=== PATIENT | female | born 1955 | race Caucasian/White ===

== ENCOUNTER 2023-07-12 22:12 | Inpatient (IN) | payer MEDICARE ==
[~2023-07-12] VITALS: Ht 177.8 cm; Wt 165.1 kg
[2023-07-12] MEDS ORDERED: POTASSIUM CHLORIDE 20 MEQ TAB.PRT.SR PO ONE ×3 (22:29→22:30)
[2023-07-12 23:13] LABS: INR 1.12 (0.91-1.10); PARTIAL THROMBOPLASTIN TIME 25.4 SEC (24.3-34.3); PROTHROMBIN TIME 11.8 SECS (9.2-11.1)
[2023-07-12 23:14] LABS: CALCIUM, SERUM 7.7 mg/dL (8.5-10.1); CARBON DIOXIDE 27 mmol/L (21-32); CHLORIDE 100 mmol/L (98-107); GLUCOSE 163 mg/dL (74-106); SODIUM SERUM 141 mmol/L (136-145); UREA NITROGEN, BLOOD 9 mg/dL (7-18)
[2023-07-12 23:15] LABS: POTASSIUM 2.1 mmol/L (3.5-5.1)
[2023-07-12 23:20] LABS: ALANINE AMINOTRANSFERASE 25 U/L (12-78); ALBUMIN 2.4 g/dL (3.4-5.0); ALKALINE PHOSPHATASE 108 U/L (46-116); ASPARTATE AMINOTRANSFERASE 43 U/L (15-37); BILIRUBIN,DIRECT 0.2 mg/dL (0.0-0.2); BILIRUBIN,TOTAL 0.4 mg/dL (0.2-1.0); LIPASE 19 U/L (16-77); TOTAL PROTEIN, SERUM 6.7 g/dL (6.4-8.2)
[2023-07-12] MEDS ORDERED: POTASSIUM CL. PREMIX PERIPHER. 50 ML ONE (23:21)
[2023-07-12 23:26] LABS: BASOPHILS # (AUTO) 0.1 K/uL (0.0-0.2); BASOPHILS % (AUTO) 0.8 % (0.0-2.0); EOSINOPHILS # (AUTO) 0.1 K/uL (0.0-0.7); EOSINOPHILS % (AUTO) 0.9 % (0.0-6.0); HEMATOCRIT 35 % (33-45); HEMOGLOBIN 11.8 g/dL (11.5-14.8); LYMPHOCYTES # (AUTO) 2.3 K/uL (0.8-4.8); MEAN CORPUSCULAR HEMOGLOBIN 30 PG (26.0-33.0); MEAN CORPUSCULAR HGB CONC 33 g/dl (31.0-36.0); MEAN CORPUSCULAR VOLUME 89 fL (82-100); MONOCYTES # (AUTO) 0.8 K/uL (0.1-1.30); MONOCYTES % (AUTO) 8.4 % (2.0-12.0); NEUTROPHILS # (AUTO) 6.4 K/uL (1.8-8.9); NEUTROPHILS % (AUTO) 65.9 % (43.0-81.0); PLATELET COUNT (AUTO) 409 K/uL (150-450); RED BLOOD CELL COUNT(AUTO) 3.96 MIL/uL (4.0-5.2); WHITE BLOOD COUNT (AUTO) 9.8 K/uL (4.3-11.0)
[2023-07-12] MEDS ORDERED: POTASSIUM CHLORIDE 10 MEQ/50 ML PREMIXED IVPB FOR PERIPHERAL LINE IV ONE (23:30)
[2023-07-13] MEDS ORDERED: Magnesium 1GM/D5W 100ML PREMIX 100 ML IV ONE (00:02)
[2023-07-13] MEDS ORDERED: POTASSIUM CL. PREMIX PERIPHER. 50 ML ONE (00:18)
[2023-07-13] MEDS ORDERED: Z GUARD REMEDY 4 OZ OINT TP PRN (00:30)
[2023-07-13] MEDS ORDERED: IV NS 0.9% 1,000 ML IV PRN (00:30)
[2023-07-13] MEDS ORDERED: ONDANSETRON HCL/PF 4 MG/2 ML VIAL IVP PRN (00:30)
[2023-07-13] MEDS ORDERED: MAGNESIUM HYDROXIDE 30 ML UDC PO PRN (00:30)
[2023-07-13] MEDS ORDERED: MAG HYDROX/AL HYDROX/SIMETH 30 ML UDC PO PRN (00:30)
[2023-07-13] MEDS ORDERED: OLME1TAB22 PO (01:01)
[2023-07-13] MEDS ORDERED: ROSU40TA PO (01:01)
[2023-07-13] MEDS ORDERED: PANT40TA49 PO (01:01)
[2023-07-13] MEDS ORDERED: ESCI10TA PO (01:01)
[2023-07-13] MEDS ORDERED: AMLO-212 PO (01:01)
[2023-07-13] MEDS ORDERED: BUSP5TAB3 PO (01:01)
[2023-07-13] MEDS ORDERED: RIVA10TA PO (01:01)
[2023-07-13] MEDS ORDERED: POTASSIUM CL. PREMIX PERIPHER. 100 ML ONE (01:59)
[2023-07-13] MEDS: ZOLPIDEM TARTRATE 5 MG TABLET PO PRN ×2 (02:34→23:47)
[2023-07-13 02:53] LABS: APPEARANCE,URINE SLIGHTLY CLOUDY (CLEAR); BILIRUBIN,URINE NEGATIVE (NEGATIVE); BLOOD, URINE 1+ Ery/uL (NEGATIVE); COLOR,URINE YELLOW (YELLOW); KETONES,URINE TRACE mg/dL (NEGATIVE); LEUKOCYTE ESTERASE ,URINE 3+ (NEGATIVE); NITRITE, URINE POSITIVE (NEGATIVE); PH,URINE 6.5 (5.0-8.0); PROTEIN,URINE 1+ mg/dl (NEGATIVE); UGLUCOSE NEGATIVE (NEGATIVE)
[2023-07-13 03:04] LABS: ADD URINE CULTURE YES; BACTERIA,URINE 4+ /HPF (None Seen); MUCUS,URINE Few /LPF (None Seen); SQUAMOUS EPITHELIAL CELL,UR None Seen /HPF (None Seen); WBC,URINE 21-50 /HPF (0-3)
[2023-07-13] MEDS: ACETAMINOPHEN 325 MG TABLET PO PRN (04:10)
[2023-07-13 07:39] LABS: CALCIUM, SERUM 7.1 mg/dL (8.5-10.1); CREATININE 0.7 mg/dL (0.6-1.3)
[2023-07-13 08:16] LABS: POTASSIUM 2.1 mmol/L (3.5-5.1)
[2023-07-13] MEDS ORDERED: PANTOPRAZOLE 40 MG VIAL IV SCH (09:00)
[2023-07-13] MEDS ORDERED: LOSARTAN/HCTZ 50-12.5MG/ 1 EA TABLET PO SCH (09:00)
[2023-07-13] MEDS ORDERED: POTASSIUM CHLORIDE 20 MEQ TAB.PRT.SR PO ONE ×6 (09:30→17:30)
[2023-07-13] MEDS ORDERED: Magnesium 1GM/D5W 100ML PREMIX PIGGYBACK IV SCH (09:30)
[2023-07-13] MEDS: busPIRone 5 MG TABLET PO SCH ×2 (10:38→16:55)
[2023-07-13] MEDS: ESCITALOPRAM OXALATE (10 MG) 10 MG TABLET PO SCH (10:38)
[2023-07-13] MEDS: PANTOPRAZOLE 40 MG TABLET.DR PO SCH (10:38)
[2023-07-13] MEDS: AMLODIPINE BESYLATE 5 MG TABLET PO SCH (10:39)
[2023-07-13] MEDS: ATORVASTATIN 40 MG TABLET PO SCH (10:39)
[2023-07-13] MEDS: RIVAROXABAN 10 MG TABLET PO SCH (10:41)
[2023-07-13] MEDS ORDERED: Magnesium 1 GM/2 ML VIAL IV ONE ×4 (11:00→14:00)
[2023-07-13] MEDS ORDERED: Magnesium 1GM/D5W 100ML PREMIX PIGGYBACK IV ONE ×5 (11:30→14:30)
[2023-07-13 14:23] LABS: CALCIUM, SERUM 7.4 mg/dL (8.5-10.1); CREATININE 0.6 mg/dL (0.6-1.3); MAGNESIUM 1.6 mg/dL (1.8-2.4)
[2023-07-13 14:47] LABS: POTASSIUM 2.2 mmol/L (3.5-5.1)
[2023-07-13 16:00] VITALS: BP 120/90; TEMP 98.2; O2SAT 94
[2023-07-13 16:32] LABS: POTASSIUM 2.3 mmol/L (3.5-5.1)
[2023-07-13 20:51] VITALS: BP 136/71; TEMP 99.3; O2SAT 97
[2023-07-14 00:44] VITALS: BP 129/67; TEMP 97.9; O2SAT 94
[2023-07-14 06:27] LABS: BASOPHILS % (AUTO) 0.4 % (0.0-2.0); EOSINOPHILS # (AUTO) 0.2 K/uL (0.0-0.7); EOSINOPHILS % (AUTO) 2.1 % (0.0-6.0); HEMATOCRIT 35 % (33-45); HEMOGLOBIN 11.5 g/dL (11.5-14.8); LYMPHOCYTES # (AUTO) 1.7 K/uL (0.8-4.8); LYMPHOCYTES % (AUTO) 21.6 % (20.0-44.0); MEAN CORPUSCULAR HEMOGLOBIN 30 PG (26.0-33.0); MEAN CORPUSCULAR HGB CONC 33 g/dl (31.0-36.0); MEAN CORPUSCULAR VOLUME 90 fL (82-100); MONOCYTES # (AUTO) 0.7 K/uL (0.1-1.30); MONOCYTES % (AUTO) 8.3 % (2.0-12.0); NEUTROPHILS # (AUTO) 5.4 K/uL (1.8-8.9); NEUTROPHILS % (AUTO) 67.6 % (43.0-81.0); PLATELET COUNT (AUTO) 365 K/uL (150-450); RED BLOOD CELL COUNT(AUTO) 3.88 MIL/uL (4.0-5.2); RED CELL DISTRIBUTION WIDTH 15.8 % (11.5-15.0); WHITE BLOOD COUNT (AUTO) 7.9 K/uL (4.3-11.0)
[2023-07-14 06:47] LABS: ALBUMIN 2.2 g/dL (3.4-5.0); BILIRUBIN,TOTAL 0.4 mg/dL (0.2-1.0); CALCIUM, SERUM 7.3 mg/dL (8.5-10.1); CREATININE 0.6 mg/dL (0.6-1.3); MAGNESIUM 1.8 mg/dL (1.8-2.4); PHOSPHORUS 2.5 mg/dL (2.5-4.9); TOTAL PROTEIN, SERUM 6.2 g/dL (6.4-8.2)
[2023-07-14 06:48] LABS: POTASSIUM 2.4 mmol/L (3.5-5.1)
[2023-07-14 08:00] VITALS: BP 127/51; TEMP 98.1; O2SAT 97
[2023-07-14] MEDS ORDERED: POTASSIUM CHLORIDE 20 MEQ TAB.PRT.SR PO ONE (08:00)
[2023-07-14] MEDS: PANTOPRAZOLE 40 MG TABLET.DR PO SCH (08:20)
[2023-07-14] MEDS: busPIRone 5 MG TABLET PO SCH ×2 (08:20→16:20)
[2023-07-14] MEDS: ACETAMINOPHEN 325 MG TABLET PO PRN (08:20)
[2023-07-14] MEDS: ESCITALOPRAM OXALATE (10 MG) 10 MG TABLET PO SCH (08:20)
[2023-07-14] MEDS: ATORVASTATIN 40 MG TABLET PO SCH (08:20)
[2023-07-14] MEDS: AMLODIPINE BESYLATE 5 MG TABLET PO SCH (08:20)
[2023-07-14] MEDS: RIVAROXABAN 10 MG TABLET PO SCH (08:22)
[2023-07-14] MEDS ORDERED: NS 0.9% IV SCH (10:00)
[2023-07-14] MEDS ORDERED: POTASSIUM CL IV SCH (10:00)
[2023-07-14] MEDS ORDERED: PERIPHER IV SCH (10:00)
[2023-07-14] MEDS: IV NS W/40MEQ KCL 1L IV SCH ×4 (10:55→20:19)
[2023-07-14 13:00] VITALS: BP 126/72; TEMP 98; O2SAT 94
[2023-07-14 20:00] VITALS: BP 110/56; TEMP 98.9; O2SAT 92
[2023-07-15] VITALS: BP 112/62; TEMP 98.8; O2SAT 98
[2023-07-15 04:00] VITALS: BP 127/67; TEMP 98.8; O2SAT 98
[2023-07-15] MEDS: IV NS W/40MEQ KCL 1L IV SCH ×4 (07:06→17:56)
[2023-07-15 08:00] VITALS: BP 156/87; TEMP 98; O2SAT 94
[2023-07-15] MEDS: ATORVASTATIN 40 MG TABLET PO SCH (08:27)
[2023-07-15] MEDS: ESCITALOPRAM OXALATE (10 MG) 10 MG TABLET PO SCH (08:27)
[2023-07-15] MEDS: PANTOPRAZOLE 40 MG TABLET.DR PO SCH (08:27)
[2023-07-15] MEDS: busPIRone 5 MG TABLET PO SCH ×2 (08:27→16:31)
[2023-07-15] MEDS: AMLODIPINE BESYLATE 5 MG TABLET PO SCH (08:27)
[2023-07-15] MEDS: RIVAROXABAN 10 MG TABLET PO SCH (08:28)
[2023-07-15] MEDS: ACETAMINOPHEN 325 MG TABLET PO PRN (08:40)
[2023-07-15] MEDS: methylPREDNISolone SOD SUCC 40 MG/ML VIAL IV SCH ×2 (09:59→16:30)
[2023-07-15 10:01] LABS: CALCIUM, SERUM 7.8 mg/dL (8.5-10.1); CREATININE 0.6 mg/dL (0.6-1.3); POTASSIUM 3.3 mmol/L (3.5-5.1)
[2023-07-15] MEDS ORDERED: POTASSIUM CHLORIDE 20 MEQ TAB.PRT.SR PO ONE (11:00)
[2023-07-15 16:00] VITALS: BP 129/67; TEMP 98.6; O2SAT 96
[2023-07-15 20:00] VITALS: BP 117/62; TEMP 98.2; O2SAT 95
[2023-07-15] MEDS: ZOLPIDEM TARTRATE 5 MG TABLET PO PRN (22:56)
[2023-07-16] MEDS: IV NS W/40MEQ KCL 1L IV SCH ×2 (04:01)
[2023-07-16 05:00] VITALS: BP 126/71; TEMP 98.4; O2SAT 94
[2023-07-16 06:54] LABS: BASOPHILS % (AUTO) 0.1 % (0.0-2.0); HEMATOCRIT 35 % (33-45); HEMOGLOBIN 11.9 g/dL (11.5-14.8); LYMPHOCYTES # (AUTO) 1.6 K/uL (0.8-4.8); LYMPHOCYTES % (AUTO) 15.9 % (20.0-44.0); MEAN CORPUSCULAR HEMOGLOBIN 30 PG (26.0-33.0); MEAN CORPUSCULAR HGB CONC 34 g/dl (31.0-36.0); MEAN CORPUSCULAR VOLUME 90 fL (82-100); MONOCYTES # (AUTO) 0.5 K/uL (0.1-1.30); MONOCYTES % (AUTO) 5.1 % (2.0-12.0); NEUTROPHILS # (AUTO) 7.9 K/uL (1.8-8.9); NEUTROPHILS % (AUTO) 78.9 % (43.0-81.0); PLATELET COUNT (AUTO) 354 K/uL (150-450); RED BLOOD CELL COUNT(AUTO) 3.93 MIL/uL (4.0-5.2); RED CELL DISTRIBUTION WIDTH 15.8 % (11.5-15.0)
[2023-07-16 07:00] VITALS: BP 142/86; TEMP 99; O2SAT 93
[2023-07-16 07:22] LABS: ALBUMIN 2.3 g/dL (3.4-5.0); BILIRUBIN,TOTAL 0.3 mg/dL (0.2-1.0); CALCIUM, SERUM 8.1 mg/dL (8.5-10.1); CREATININE 0.6 mg/dL (0.6-1.3); MAGNESIUM 1.3 mg/dL (1.8-2.4); POTASSIUM 4.1 mmol/L (3.5-5.1); TOTAL PROTEIN, SERUM 6.6 g/dL (6.4-8.2)
[2023-07-16] MEDS: PANTOPRAZOLE 40 MG TABLET.DR PO SCH (08:30)
[2023-07-16] MEDS: busPIRone 5 MG TABLET PO SCH ×2 (08:30→17:06)
[2023-07-16] MEDS: ESCITALOPRAM OXALATE (10 MG) 10 MG TABLET PO SCH (08:30)
[2023-07-16] MEDS: ATORVASTATIN 40 MG TABLET PO SCH (08:30)
[2023-07-16] MEDS: methylPREDNISolone SOD SUCC 40 MG/ML VIAL IV SCH ×2 (08:30→17:06)
[2023-07-16] MEDS: AMLODIPINE BESYLATE 5 MG TABLET PO SCH (08:34)
[2023-07-16] MEDS: RIVAROXABAN 10 MG TABLET PO SCH (08:40)
[2023-07-16] MEDS: ACETAMINOPHEN 325 MG TABLET PO PRN (08:59)
[2023-07-16] MEDS ORDERED: MAGNESIUM OXIDE 400 MG TABLET PO ONE ×2 (10:30→12:00)
[2023-07-16] MEDS: Magnesium 1GM/D5W 100ML PREMIX 100 ML IV SCH ×4 (11:53→15:20)
[2023-07-16 12:00] VITALS: BP 148/89; TEMP 98.4; O2SAT 95
[2023-07-16] MEDS: POTASSIUM PHOSPHATE MM 7.5 MMOL in IV NS 0.9% 100 ML IV SCH ×2 (12:25→15:51)
[2023-07-16 16:00] VITALS: BP 141/79; TEMP 98.2; O2SAT 95
[2023-07-16 20:00] VITALS: BP 165/90; TEMP 98.2; O2SAT 95; O2SAT 98
[2023-07-16] MEDS: ZOLPIDEM TARTRATE 5 MG TABLET PO PRN (23:52)
[2023-07-17] VITALS: BP 145/92; TEMP 98; O2SAT 95
[2023-07-17 08:00] VITALS: BP 139/85; TEMP 97.9; O2SAT 96
[2023-07-17 08:11] VITALS: O2SAT 94
[2023-07-17] MEDS: methylPREDNISolone SOD SUCC 40 MG/ML VIAL IV SCH (08:43)
[2023-07-17] MEDS: busPIRone 5 MG TABLET PO SCH ×2 (08:44→17:04)
[2023-07-17] MEDS: ATORVASTATIN 40 MG TABLET PO SCH (08:44)
[2023-07-17] MEDS: ESCITALOPRAM OXALATE (10 MG) 10 MG TABLET PO SCH (08:44)
[2023-07-17] MEDS: PANTOPRAZOLE 40 MG TABLET.DR PO SCH (08:44)
[2023-07-17] MEDS: AMLODIPINE BESYLATE 5 MG TABLET PO SCH (08:45)
[2023-07-17] MEDS: RIVAROXABAN 10 MG TABLET PO SCH (08:45)
[2023-07-17] MEDS: Magnesium 1GM/D5W 100ML PREMIX 100 ML IV SCH ×4 (09:43→13:00)
[2023-07-17] MEDS: ACETAMINOPHEN 325 MG TABLET PO PRN (09:47)
[2023-07-17 13:25] LABS: CALCIUM, SERUM 8.2 mg/dL (8.5-10.1); CREATININE 0.8 mg/dL (0.6-1.3); POTASSIUM 4.1 mmol/L (3.5-5.1)
[2023-07-17 13:29] LABS: PHOSPHORUS 1.3 mg/dL (2.5-4.9)
[2023-07-17 16:00] VITALS: BP 138/74; TEMP 98.4; O2SAT 94
[2023-07-17] MEDS ORDERED: K PHOS NEUTRAL 250 MG TABLET PO ONE (16:30)
[2023-07-17] MEDS: POTASSIUM PHOSPHATE MM 7.5 MMOL in IV NS 0.9% 100 ML IV SCH ×2 (17:18→20:17)
[2023-07-17 20:00] VITALS: BP 127/70; TEMP 98.8; O2SAT 94
[2023-07-17] MEDS: ZOLPIDEM TARTRATE 5 MG TABLET PO PRN (23:52)
[2023-07-18] VITALS: BP 127/66; TEMP 98.2; O2SAT 97
[2023-07-18 04:00] VITALS: BP 119/60; TEMP 98.6; O2SAT 97
[2023-07-18 08:00] VITALS: BP 147/82; TEMP 98.6; O2SAT 95
[2023-07-18] MEDS: ESCITALOPRAM OXALATE (10 MG) 10 MG TABLET PO SCH (08:51)
[2023-07-18] MEDS: PANTOPRAZOLE 40 MG TABLET.DR PO SCH (08:51)
[2023-07-18] MEDS: busPIRone 5 MG TABLET PO SCH ×2 (08:52→17:46)
[2023-07-18] MEDS: AMLODIPINE BESYLATE 5 MG TABLET PO SCH (08:52)
[2023-07-18] MEDS: ATORVASTATIN 40 MG TABLET PO SCH (08:52)
[2023-07-18] MEDS: predniSONE 20 MG TABLET PO SCH (08:53)
[2023-07-18] MEDS: RIVAROXABAN 10 MG TABLET PO SCH (08:54)
[2023-07-18] MEDS: ACETAMINOPHEN 325 MG TABLET PO PRN (09:10)
[2023-07-18 16:09] VITALS: BP 151/85; TEMP 97.9; O2SAT 97
[2023-07-18 20:42] VITALS: BP 163/89; TEMP 97.5; O2SAT 96
[2023-07-18] MEDS: NITROFURANTOIN/MONOHYDRATE MACROCRYSTALS 100 MG CAPSULE PO SCH ×2 (21:04→21:50)
[2023-07-18] MEDS: ZOLPIDEM TARTRATE 5 MG TABLET PO PRN (22:40)
[2023-07-19 00:18] VITALS: BP 133/78; TEMP 98.1; O2SAT 99
[2023-07-19 04:22] VITALS: BP 144/65; TEMP 99; O2SAT 97
[2023-07-19] MEDS: AMLODIPINE BESYLATE 5 MG TABLET PO SCH (08:25)
[2023-07-19] MEDS: NITROFURANTOIN/MONOHYDRATE MACROCRYSTALS 100 MG CAPSULE PO SCH (08:25)
[2023-07-19] MEDS: ATORVASTATIN 40 MG TABLET PO SCH (08:25)
[2023-07-19] MEDS: predniSONE 20 MG TABLET PO SCH (08:25)
[2023-07-19] MEDS: PANTOPRAZOLE 40 MG TABLET.DR PO SCH (08:26)
[2023-07-19] MEDS: busPIRone 5 MG TABLET PO SCH (08:26)
[2023-07-19] MEDS: ESCITALOPRAM OXALATE (10 MG) 10 MG TABLET PO SCH (08:26)
[2023-07-19] MEDS: RIVAROXABAN 10 MG TABLET PO SCH (08:30)
[2023-07-19 10:55] VITALS: BP 153/76; TEMP 97.8; O2SAT 94
== END 2023-07-19 15:49 | DRG 640 ==
LOC: ER 22:13 → TELE 07-13 00:16
PROVIDERS: ADMIT Internal Medicine; ATTEND Nurse Practitioner Family
PROC: 5A09457 Assistance with Respiratory Ventilation, 24-96 Consecutive Hours, Continuous Positive Airway Pressure (ICD-10-PCS; principal; 2023-07-15)
DX: E87.6 Hypokalemia (principal); E43 Unspecified severe protein-calorie malnutrition; J96.20 Acute and chronic respiratory failure, unspecified whether with hypoxia or hypercapnia; Z68.43 Body mass index [BMI] 50.0-59.9, adult; N39.0 Urinary tract infection, site not specified; K52.832 Lymphocytic colitis; I10 Essential (primary) hypertension; E78.5 Hyperlipidemia, unspecified; E83.42 Hypomagnesemia; Z90.710 Acquired absence of both cervix and uterus; Z90.49 Acquired absence of other specified parts of digestive tract; Z88.2 Allergy status to sulfonamides; Z88.1 Allergy status to other antibiotic agents; Z88.5 Allergy status to narcotic agent; Z86.718 Personal history of other venous thrombosis and embolism; Z86.711 Personal history of pulmonary embolism; E66.01 Morbid (severe) obesity due to excess calories; L72.0 Epidermal cyst; Z87.19 Personal history of other diseases of the digestive system; N20.0 Calculus of kidney; Z79.01 Long term (current) use of anticoagulants; F17.200 Nicotine dependence, unspecified, uncomplicated; K29.70 Gastritis, unspecified, without bleeding; B96.20 Unspecified Escherichia coli [E. coli] as the cause of diseases classified elsewhere; R19.09 Other intra-abdominal and pelvic swelling, mass and lump; G47.33 Obstructive sleep apnea (adult) (pediatric)
CPT/HCPCS: 36415; 71045-TC; 76856-TC; 80048-TC; 80053-TC; 80076-TC; 81001; 82962-TC; 83690-TC; 83735-TC; 84100-TC; 84132-TC; 84484-TC; 85025-TC; 85730-TC; 87086-TC; 94799-TC; 97110-TC; 97116-TC; 97530-TC; 97535-TC; A4223; C9113; G0378; J2920; J3475; J3480; J3490; J7030; J7040; J7050

== ENCOUNTER 2023-08-28 12:50 | Emergency (ER) | payer MEDICARE, BC ==
[~2023-08-28] VITALS: Ht 177.8 cm; Wt 167.8 kg
[~2023-08-28 12:50] MED LIST: AMLO-212 PO; BUSP5TAB3 PO; ESCI10TA PO; OLME1TAB22 PO; PANT40TA49 PO; RIVA10TA PO; ROSU40TA PO
[2023-08-28 12:55] VITALS: TEMP 98
[2023-08-28] MEDS ORDERED: ONDANSETRON HCL/PF 4 MG/2 ML VIAL ONE (13:17)
[2023-08-28] MEDS ORDERED: IV NS 0.9% 1,000 ML BAG IV ONE (13:30)
[2023-08-28] MEDS ORDERED: ONDANSETRON HCL/PF 4 MG/2 ML VIAL IVP ONE (13:30)
[2023-08-28 13:37] LABS: BASOPHILS % (AUTO) 0.1 % (0.0-2.0); EOSINOPHILS % (AUTO) 0.4 % (0.0-6.0); HEMATOCRIT 43 % (33-45); HEMOGLOBIN 14.1 g/dL (11.5-14.8); LYMPHOCYTES # (AUTO) 0.8 K/uL (0.8-4.8); LYMPHOCYTES % (AUTO) 9.1 % (20.0-44.0); MEAN CORPUSCULAR HEMOGLOBIN 30 PG (26.0-33.0); MEAN CORPUSCULAR HGB CONC 33 g/dl (31.0-36.0); MEAN CORPUSCULAR VOLUME 92 fL (82-100); MONOCYTES # (AUTO) 0.5 K/uL (0.1-1.30); MONOCYTES % (AUTO) 5.8 % (2.0-12.0); NEUTROPHILS # (AUTO) 7.7 K/uL (1.8-8.9); NEUTROPHILS % (AUTO) 84.6 % (43.0-81.0); PLATELET COUNT (AUTO) 226 K/uL (150-450); RED BLOOD CELL COUNT(AUTO) 4.64 MIL/uL (4.0-5.2); RED CELL DISTRIBUTION WIDTH 16.9 % (11.5-15.0)
[2023-08-28] MEDS ORDERED: NA P133E RC (13:51)
[2023-08-28] MEDS ORDERED: GUAI5SYR PO (13:51)
[2023-08-28] MEDS ORDERED: MULT-447 PO (13:51)
[2023-08-28] MEDS ORDERED: APIX5TAB PO (13:51)
[2023-08-28] MEDS ORDERED: ATOR40TA PO (13:51)
[2023-08-28] MEDS ORDERED: MELA5TAB PO (13:51)
[2023-08-28] MEDS ORDERED: MAGN400O6 PO (13:51)
[2023-08-28] MEDS ORDERED: OLME1TAB16 PO (13:51)
[2023-08-28] MEDS ORDERED: GLIM1TAB18 PO (13:51)
[2023-08-28] MEDS ORDERED: PHEN-894 PO (13:51)
[2023-08-28] MEDS ORDERED: ASCO-352 PO (13:51)
[2023-08-28] MEDS ORDERED: [UNRECOGNIZED DRUG - CODE] PO (13:51)
[2023-08-28] MEDS ORDERED: INSU100V28 SQ (13:51)
[2023-08-28] MEDS ORDERED: ACET-868 PO (13:51)
[2023-08-28] MEDS ORDERED: PRED20TA PO (13:51)
[2023-08-28] MEDS ORDERED: CRAN250C PO (13:51)
[2023-08-28] MEDS ORDERED: BISA10SU11 RC (13:51)
[2023-08-28] MEDS ORDERED: MAG30ORA PO (13:51)
[2023-08-28] MEDS ORDERED: POTA-88 PO (13:51)
[2023-08-28 13:55] LABS: CALCIUM, SERUM 8.8 mg/dL (8.5-10.1); CREATININE 0.8 mg/dL (0.6-1.3); POTASSIUM 3.3 mmol/L (3.5-5.1)
[2023-08-28 13:59] LABS: LACTIC ACID 1.5 mmol/L (0.4-2.0)
[2023-08-28 14:06] LABS: ALBUMIN 2.9 g/dL (3.4-5.0); BILIRUBIN,DIRECT 0.1 mg/dL (0.0-0.2); BILIRUBIN,TOTAL 0.5 mg/dL (0.2-1.0); TOTAL PROTEIN, SERUM 6.9 g/dL (6.4-8.2)
[2023-08-28 16:30] LABS: APPEARANCE,URINE SLIGHTLY CLOUDY (CLEAR)
[2023-08-28 16:31] LABS: COLOR,URINE ORANGE (YELLOW)
[2023-08-28 16:34] LABS: BACTERIA,URINE 4+ /HPF (None Seen); SQUAMOUS EPITHELIAL CELL,UR 0-2 /HPF (None Seen)
[2023-08-28 17:29] VITALS: BP 131/82; O2SAT 94
[2023-08-28] MEDS ORDERED: CEFTRIAXONE 1GM BAG (ER ONLY) 50 ML IV ONE (19:23)
[2023-08-28] MEDS ORDERED: CEFTRIAXONE 1GM BAG (ER ONLY) 1 GM/50 ML PIGGYBACK IV ONE (19:30)
[2023-08-28] MEDS ORDERED: CEFD300C3 PO (20:05)
== END 2023-08-28 20:47 ==
LOC: ER 12:55
DX: N39.0 Urinary tract infection, site not specified (principal); I10 Essential (primary) hypertension; E78.5 Hyperlipidemia, unspecified; Z90.49 Acquired absence of other specified parts of digestive tract; Z79.4 Long term (current) use of insulin; Z98.890 Other specified postprocedural states; Z79.899 Other long term (current) drug therapy; Z60.2 Problems related to living alone; Z88.2 Allergy status to sulfonamides; Z88.5 Allergy status to narcotic agent
CPT/HCPCS: 99284; 96365; 96361; 96375; 93005; 85025; 80048; 87086; 83605; 83690; 80076; 81001; 36415; 84484 ×2; J2405; J7030; J0696

== ENCOUNTER 2023-09-12 21:11 | Inpatient (IN) | payer MEDICARE, BC ==
[~2023-09-12] VITALS: Ht 177.8 cm; Wt 163.3 kg
[~2023-09-12 21:11] MED LIST changes: +ACET-868 PO; +APIX5TAB PO; +ASCO-352 PO; +ATOR40TA PO; +BISA10SU11 RC; +CEFD300C3 PO; +CRAN250C PO; +GLIM1TAB18 PO; +GUAI5SYR PO; +INSU100V28 SQ; +MAG30ORA PO; +MAGN400O6 PO; +MELA5TAB PO; +MULT-447 PO; +NA P133E RC; +OLME1TAB16 PO; -OLME1TAB22 PO; +PHEN-894 PO; +POTA-88 PO; +PRED20TA PO; -RIVA10TA PO; -ROSU40TA PO; +[UNRECOGNIZED DRUG - CODE] PO
[2023-09-12 22:16] LABS: BASOPHILS % (AUTO) 0.4 % (0.0-2.0); EOSINOPHILS # (AUTO) 0.2 K/uL (0.0-0.7); EOSINOPHILS % (AUTO) 2.2 % (0.0-6.0); HEMATOCRIT 37 % (33-45); LYMPHOCYTES # (AUTO) 3.2 K/uL (0.8-4.8); LYMPHOCYTES % (AUTO) 40.2 % (20.0-44.0); MEAN CORPUSCULAR HEMOGLOBIN 30 PG (26.0-33.0); MEAN CORPUSCULAR HGB CONC 32 g/dl (31.0-36.0); MEAN CORPUSCULAR VOLUME 92 fL (82-100); MONOCYTES # (AUTO) 0.7 K/uL (0.1-1.30); MONOCYTES % (AUTO) 8.5 % (2.0-12.0); NEUTROPHILS # (AUTO) 3.9 K/uL (1.8-8.9); NEUTROPHILS % (AUTO) 48.7 % (43.0-81.0); PLATELET COUNT (AUTO) 298 K/uL (150-450); RED BLOOD CELL COUNT(AUTO) 4.03 MIL/uL (4.0-5.2); RED CELL DISTRIBUTION WIDTH 16.7 % (11.5-15.0); WHITE BLOOD COUNT (AUTO) 7.9 K/uL (4.3-11.0)
[2023-09-12 22:30] LABS: ALBUMIN 2.7 g/dL (3.4-5.0); BILIRUBIN,TOTAL 0.3 mg/dL (0.2-1.0); CALCIUM, SERUM 7.8 mg/dL (8.5-10.1); CREATININE 0.7 mg/dL (0.6-1.3); TOTAL PROTEIN, SERUM 6.8 g/dL (6.4-8.2)
[2023-09-12 22:39] LABS: POTASSIUM 2.8 mmol/L (3.5-5.1)
[2023-09-12 22:53] VITALS: O2SAT 93
[2023-09-12] MEDS ORDERED: IV PREMIX D5 1/2NS + KCL 1,000 ML IV ONE ×2 (22:57→23:00)
[2023-09-12 23:10] LABS: MAGNESIUM 0.4 mg/dL (1.8-2.4); PHOSPHORUS 2.7 mg/dL (2.5-4.9)
[2023-09-12] MEDS ORDERED: Magnesium 1GM/D5W 100ML PREMIX 100 ML IV ONE (23:13)
[2023-09-12] MEDS ORDERED: Magnesium 1GM/D5W 100ML PREMIX PIGGYBACK IV ONE (23:30)
[2023-09-13] MEDS ORDERED: Magnesium 1GM/D5W 100ML PREMIX PIGGYBACK IV ONE (00:30)
[2023-09-13 00:35] LABS: APPEARANCE,URINE SLIGHTLY CLOUDY (CLEAR); BILIRUBIN,URINE NEGATIVE (NEGATIVE); BLOOD, URINE NEGATIVE Ery/uL (NEGATIVE); COLOR,URINE YELLOW (YELLOW); KETONES,URINE NEGATIVE (NEGATIVE); LEUKOCYTE ESTERASE ,URINE 1+ (NEGATIVE); NITRITE, URINE POSITIVE (NEGATIVE); PH,URINE 5.5 (5.0-8.0); PROTEIN,URINE NEGATIVE (NEGATIVE); UGLUCOSE NEGATIVE (NEGATIVE); UROBILINOGEN,URINE 0.2 EU/dL (0.2)
[2023-09-13 00:36] LABS: ADD URINE CULTURE YES; BACTERIA,URINE Moderate /HPF (None Seen); SQUAMOUS EPITHELIAL CELL,UR Few /HPF (None Seen)
[2023-09-13] MEDS: POTASSIUM CL. PREMIX PERIPHER. 50 ML IV SCH ×4 (02:30→05:26)
[2023-09-13] MEDS: ACETAMINOPHEN 325 MG TABLET PO PRN ×3 (03:27→23:44)
[2023-09-13] MEDS: IV NS 0.9% 1,000 ML IV PRN (03:41)
[2023-09-13] MEDS: ONDANSETRON HCL/PF 4 MG/2 ML VIAL IVP PRN ×2 (04:14→10:51)
[2023-09-13] MEDS ORDERED: LOPE-195 PO (08:09)
[2023-09-13 08:28] LABS: BASOPHILS # (AUTO) 0.1 K/uL (0.0-0.2); EOSINOPHILS # (AUTO) 0.2 K/uL (0.0-0.7); EOSINOPHILS % (AUTO) 2.3 % (0.0-6.0); HEMATOCRIT 37 % (33-45); HEMOGLOBIN 11.8 g/dL (11.5-14.8); LYMPHOCYTES # (AUTO) 2.4 K/uL (0.8-4.8); LYMPHOCYTES % (AUTO) 33.3 % (20.0-44.0); MEAN CORPUSCULAR HEMOGLOBIN 30 PG (26.0-33.0); MEAN CORPUSCULAR HGB CONC 32 g/dl (31.0-36.0); MEAN CORPUSCULAR VOLUME 93 fL (82-100); MONOCYTES # (AUTO) 0.7 K/uL (0.1-1.30); MONOCYTES % (AUTO) 9.7 % (2.0-12.0); NEUTROPHILS # (AUTO) 3.8 K/uL (1.8-8.9); NEUTROPHILS % (AUTO) 53.7 % (43.0-81.0); PLATELET COUNT (AUTO) 300 K/uL (150-450); RED BLOOD CELL COUNT(AUTO) 3.93 MIL/uL (4.0-5.2); RED CELL DISTRIBUTION WIDTH 16.6 % (11.5-15.0); WHITE BLOOD COUNT (AUTO) 7.1 K/uL (4.3-11.0)
[2023-09-13 08:56] LABS: CALCIUM, SERUM 7.5 mg/dL (8.5-10.1); CREATININE 0.6 mg/dL (0.6-1.3); PHOSPHORUS 3.9 mg/dL (2.5-4.9)
[2023-09-13 08:59] LABS: MAGNESIUM 0.7 mg/dL (1.8-2.4); POTASSIUM 2.7 mmol/L (3.5-5.1)
[2023-09-13 09:00] VITALS: BP 121/63; TEMP 98.5; O2SAT 89
[2023-09-13] MEDS: IV PREMIX D5 1/2NS + KCL 1,000 ML IV SCH (09:24)
[2023-09-13] MEDS: Magnesium 1GM/D5W 100ML PREMIX 100 ML IV SCH ×2 (10:41→11:52)
[2023-09-13] MEDS: methylPREDNISolone SOD SUCC 40 MG/ML VIAL IV SCH ×2 (11:19→20:02)
[2023-09-13 14:26] LABS: CALCIUM, SERUM 7.8 mg/dL (8.5-10.1); CREATININE 0.7 mg/dL (0.6-1.3); MAGNESIUM 1.3 mg/dL (1.8-2.4); POTASSIUM 3.1 mmol/L (3.5-5.1)
[2023-09-13] MEDS ORDERED: DEXTROSE 50%-WATER 50 ML DISP.SYRIN IV PRN (15:00)
[2023-09-13] MEDS: BLOOD SUGAR DIAGNOSTIC 1 EACH STRIP VI SCH ×2 (16:43→22:40)
[2023-09-13] MEDS: INSULIN REGULAR, HUMAN 100 UNIT/ML 3 ML VIAL SQ PRN ×2 (16:51→23:00)
[2023-09-13 17:04] VITALS: BP 135/71; TEMP 99; O2SAT 94
[2023-09-13 19:00] VITALS: BP 136/70; TEMP 99; O2SAT 96
[2023-09-14] VITALS: BP 128/69; TEMP 97.8; O2SAT 96
[2023-09-14] MEDS: ATORVASTATIN 40 MG TABLET PO SCH ×2 (00:27→21:43)
[2023-09-14] MEDS: busPIRone 5 MG TABLET PO SCH ×3 (00:28→17:41)
[2023-09-14] MEDS ORDERED: diphenhydrAMINE HCL ELIX 25 MG/10 ML UDC PO PRN (00:30)
[2023-09-14] MEDS: APIXABAN 5 MG TABLET PO SCH ×3 (00:55→21:44)
[2023-09-14] MEDS: IV PREMIX D5 1/2NS + KCL 1,000 ML IV SCH (03:40)
[2023-09-14] MEDS: IV NS 0.9% 1,000 ML IV PRN (03:49)
[2023-09-14 04:00] VITALS: BP 110/66; TEMP 98.2; O2SAT 93
[2023-09-14] MEDS: BLOOD SUGAR DIAGNOSTIC 1 EACH STRIP VI SCH ×4 (06:22→21:45)
[2023-09-14] MEDS: INSULIN REGULAR, HUMAN 100 UNIT/ML 3 ML VIAL SQ PRN ×3 (06:24→17:44)
[2023-09-14 06:30] LABS: BASOPHILS # (AUTO) 0.1 K/uL (0.0-0.2); BASOPHILS % (AUTO) 1.1 % (0.0-2.0); HEMATOCRIT 36 % (33-45); LYMPHOCYTES # (AUTO) 1.1 K/uL (0.8-4.8); LYMPHOCYTES % (AUTO) 14.9 % (20.0-44.0); MEAN CORPUSCULAR HEMOGLOBIN 31 PG (26.0-33.0); MEAN CORPUSCULAR HGB CONC 33 g/dl (31.0-36.0); MEAN CORPUSCULAR VOLUME 93 fL (82-100); MONOCYTES # (AUTO) 0.2 K/uL (0.1-1.30); MONOCYTES % (AUTO) 3.2 % (2.0-12.0); NEUTROPHILS # (AUTO) 5.9 K/uL (1.8-8.9); NEUTROPHILS % (AUTO) 80.8 % (43.0-81.0); PLATELET COUNT (AUTO) 323 K/uL (150-450); RED CELL DISTRIBUTION WIDTH 16.4 % (11.5-15.0); WHITE BLOOD COUNT (AUTO) 7.3 K/uL (4.3-11.0)
[2023-09-14 06:57] LABS: CALCIUM, SERUM 7.8 mg/dL (8.5-10.1); CREATININE 0.7 mg/dL (0.6-1.3); PHOSPHORUS 2.2 mg/dL (2.5-4.9); POTASSIUM 3.3 mmol/L (3.5-5.1)
[2023-09-14 07:15] LABS: MAGNESIUM 1.2 mg/dL (1.8-2.4)
[2023-09-14] MEDS ORDERED: PANTOPRAZOLE 40 MG TABLET.DR PO SCH (07:30)
[2023-09-14 08:00] VITALS: BP 117/70; TEMP 97.6; O2SAT 94
[2023-09-14] MEDS: MULTIVIT W/MINERALS 1 TAB TABLET PO SCH (08:53)
[2023-09-14] MEDS: ASCORBIC ACID 500 MG TABLET PO SCH (08:54)
[2023-09-14] MEDS: AMLODIPINE BESYLATE 5 MG TABLET PO SCH (08:54)
[2023-09-14] MEDS: ESCITALOPRAM OXALATE (10 MG) 10 MG TABLET PO SCH (08:55)
[2023-09-14] MEDS: methylPREDNISolone SOD SUCC 40 MG/ML VIAL IV SCH ×2 (09:00→21:42)
[2023-09-14] MEDS: ACETAMINOPHEN 325 MG TABLET PO PRN (09:00)
[2023-09-14] MEDS ORDERED: MAGNESIUM OXIDE 400 MG TABLET PO ONE (11:00)
[2023-09-14] MEDS: POTASSIUM CHLORIDE 20 MEQ TAB.PRT.SR PO ONE ×2 (11:00→11:52)
[2023-09-14] MEDS ORDERED: POTASSIUM CHLORIDE 20 MEQ POWDER PACKET PO ONE (13:00)
[2023-09-14 16:00] VITALS: BP 120/60; TEMP 97.9; O2SAT 95
[2023-09-14] MEDS ORDERED: K PHOS NEUTRAL 250 MG TABLET PO ONE (17:00)
[2023-09-14] MEDS: PANTOPRAZOLE 40 MG TABLET.DR PO SCH (17:41)
[2023-09-14 20:00] VITALS: BP 106/60; TEMP 98.8; O2SAT 93
[2023-09-14] MEDS: *INSULIN REGULAR(HUMULIN R)HUM 100 UNIT/ML VIAL SQ PRN (22:40)
[2023-09-15] VITALS: BP 121/68; TEMP 98.2; O2SAT 95
[2023-09-15 04:00] VITALS: BP 121/68; TEMP 98.2; O2SAT 95
[2023-09-15] MEDS: ACETAMINOPHEN 325 MG TABLET PO PRN (06:15)
[2023-09-15] MEDS: INSULIN REGULAR, HUMAN 100 UNIT/ML 3 ML VIAL SQ PRN ×3 (06:26→16:39)
[2023-09-15] MEDS: BLOOD SUGAR DIAGNOSTIC 1 EACH STRIP VI SCH ×4 (06:27→21:21)
[2023-09-15 06:35] LABS: BASOPHILS % (AUTO) 0.2 % (0.0-2.0); HEMATOCRIT 36 % (33-45); HEMOGLOBIN 11.7 g/dL (11.5-14.8); LYMPHOCYTES # (AUTO) 1.5 K/uL (0.8-4.8); LYMPHOCYTES % (AUTO) 15.1 % (20.0-44.0); MEAN CORPUSCULAR HEMOGLOBIN 30 PG (26.0-33.0); MEAN CORPUSCULAR HGB CONC 33 g/dl (31.0-36.0); MEAN CORPUSCULAR VOLUME 93 fL (82-100); MONOCYTES # (AUTO) 0.3 K/uL (0.1-1.30); MONOCYTES % (AUTO) 3.3 % (2.0-12.0); NEUTROPHILS % (AUTO) 81.4 % (43.0-81.0); PLATELET COUNT (AUTO) 351 K/uL (150-450); RED BLOOD CELL COUNT(AUTO) 3.84 MIL/uL (4.0-5.2); RED CELL DISTRIBUTION WIDTH 16.6 % (11.5-15.0); WHITE BLOOD COUNT (AUTO) 9.9 K/uL (4.3-11.0)
[2023-09-15 07:18] LABS: CALCIUM, SERUM 8.1 mg/dL (8.5-10.1); CREATININE 0.7 mg/dL (0.6-1.3); POTASSIUM 4.3 mmol/L (3.5-5.1)
[2023-09-15] MEDS: methylPREDNISolone SOD SUCC 40 MG/ML VIAL IV SCH ×2 (08:11→21:00)
[2023-09-15] MEDS: MULTIVIT W/MINERALS 1 TAB TABLET PO SCH (08:39)
[2023-09-15] MEDS: ASCORBIC ACID 500 MG TABLET PO SCH (08:39)
[2023-09-15] MEDS: MAGNESIUM OXIDE 400 MG TABLET PO SCH (08:39)
[2023-09-15] MEDS: APIXABAN 5 MG TABLET PO SCH ×2 (08:40→21:20)
[2023-09-15] MEDS: ESCITALOPRAM OXALATE (10 MG) 10 MG TABLET PO SCH (08:40)
[2023-09-15] MEDS: AMLODIPINE BESYLATE 5 MG TABLET PO SCH (08:40)
[2023-09-15] MEDS: PANTOPRAZOLE 40 MG TABLET.DR PO SCH ×2 (08:40→16:38)
[2023-09-15] MEDS: busPIRone 5 MG TABLET PO SCH ×2 (08:40→16:38)
[2023-09-15 09:28] VITALS: BP 125/77; TEMP 97.9; O2SAT 94
[2023-09-15 12:00] VITALS: BP 132/78; TEMP 98.1; O2SAT 93
[2023-09-15 16:23] VITALS: BP 125/73; TEMP 97.8; O2SAT 98
[2023-09-15 19:15] VITALS: BP 123/73; TEMP 98.1; O2SAT 98
[2023-09-15] MEDS: ATORVASTATIN 40 MG TABLET PO SCH (21:21)
[2023-09-15] MEDS: *INSULIN REGULAR(HUMULIN R)HUM 100 UNIT/ML VIAL SQ PRN (21:47)
[2023-09-16 06:22] LABS: BASOPHILS # (AUTO) 0.1 K/uL (0.0-0.2); BASOPHILS % (AUTO) 0.6 % (0.0-2.0); EOSINOPHILS % (AUTO) 0.3 % (0.0-6.0); HEMATOCRIT 34 % (33-45); HEMOGLOBIN 11.1 g/dL (11.5-14.8); LYMPHOCYTES # (AUTO) 3.5 K/uL (0.8-4.8); LYMPHOCYTES % (AUTO) 34.2 % (20.0-44.0); MEAN CORPUSCULAR HEMOGLOBIN 30 PG (26.0-33.0); MEAN CORPUSCULAR HGB CONC 33 g/dl (31.0-36.0); MEAN CORPUSCULAR VOLUME 93 fL (82-100); MONOCYTES # (AUTO) 0.9 K/uL (0.1-1.30); MONOCYTES % (AUTO) 8.5 % (2.0-12.0); NEUTROPHILS # (AUTO) 5.7 K/uL (1.8-8.9); NEUTROPHILS % (AUTO) 56.4 % (43.0-81.0); PLATELET COUNT (AUTO) 321 K/uL (150-450); RED BLOOD CELL COUNT(AUTO) 3.68 MIL/uL (4.0-5.2); RED CELL DISTRIBUTION WIDTH 16.2 % (11.5-15.0); WHITE BLOOD COUNT (AUTO) 10.2 K/uL (4.3-11.0)
[2023-09-16] MEDS: BLOOD SUGAR DIAGNOSTIC 1 EACH STRIP VI SCH ×4 (07:05→21:38)
[2023-09-16] MEDS: INSULIN REGULAR, HUMAN 100 UNIT/ML 3 ML VIAL SQ PRN ×3 (07:06→17:06)
[2023-09-16 07:26] LABS: ALBUMIN 2.4 g/dL (3.4-5.0); BILIRUBIN,TOTAL 0.3 mg/dL (0.2-1.0); CALCIUM, SERUM 8.1 mg/dL (8.5-10.1); CREATININE 0.6 mg/dL (0.6-1.3); POTASSIUM 3.7 mmol/L (3.5-5.1)
[2023-09-16 08:30] VITALS: BP 135/72; TEMP 97.9; O2SAT 94
[2023-09-16] MEDS: MULTIVIT W/MINERALS 1 TAB TABLET PO SCH (09:01)
[2023-09-16] MEDS: MAGNESIUM OXIDE 400 MG TABLET PO SCH (09:01)
[2023-09-16] MEDS: ASCORBIC ACID 500 MG TABLET PO SCH (09:01)
[2023-09-16] MEDS: methylPREDNISolone SOD SUCC 40 MG/ML VIAL IV SCH ×2 (09:01→20:40)
[2023-09-16] MEDS: PANTOPRAZOLE 40 MG TABLET.DR PO SCH ×2 (09:02→17:05)
[2023-09-16] MEDS: AMLODIPINE BESYLATE 5 MG TABLET PO SCH (09:02)
[2023-09-16] MEDS: ESCITALOPRAM OXALATE (10 MG) 10 MG TABLET PO SCH (09:02)
[2023-09-16] MEDS: busPIRone 5 MG TABLET PO SCH ×2 (09:02→17:05)
[2023-09-16] MEDS: APIXABAN 5 MG TABLET PO SCH ×2 (09:05→21:21)
[2023-09-16] MEDS ORDERED: POTA20TA10 PO (11:10)
[2023-09-16] MEDS ORDERED: LINA5TAB PO (11:18)
[2023-09-16 16:00] VITALS: BP 136/84; TEMP 97.8; O2SAT 98
[2023-09-16 20:00] VITALS: BP 128/69; TEMP 98.2; O2SAT 95
[2023-09-16] MEDS: ATORVASTATIN 40 MG TABLET PO SCH (21:19)
[2023-09-16] MEDS: *INSULIN REGULAR(HUMULIN R)HUM 100 UNIT/ML VIAL SQ PRN (21:44)
[2023-09-17] MEDS: BLOOD SUGAR DIAGNOSTIC 1 EACH STRIP VI SCH ×4 (06:40→21:17)
[2023-09-17 07:05] LABS: BASOPHILS % (AUTO) 0.2 % (0.0-2.0); EOSINOPHILS % (AUTO) 0.1 % (0.0-6.0); HEMATOCRIT 35 % (33-45); HEMOGLOBIN 11.4 g/dL (11.5-14.8); LYMPHOCYTES # (AUTO) 2.8 K/uL (0.8-4.8); LYMPHOCYTES % (AUTO) 27.4 % (20.0-44.0); MEAN CORPUSCULAR HEMOGLOBIN 30 PG (26.0-33.0); MEAN CORPUSCULAR HGB CONC 33 g/dl (31.0-36.0); MEAN CORPUSCULAR VOLUME 93 fL (82-100); MONOCYTES % (AUTO) 9.5 % (2.0-12.0); NEUTROPHILS # (AUTO) 6.5 K/uL (1.8-8.9); NEUTROPHILS % (AUTO) 62.8 % (43.0-81.0); PLATELET COUNT (AUTO) 334 K/uL (150-450); RED BLOOD CELL COUNT(AUTO) 3.76 MIL/uL (4.0-5.2); RED CELL DISTRIBUTION WIDTH 16.3 % (11.5-15.0); WHITE BLOOD COUNT (AUTO) 10.3 K/uL (4.3-11.0)
[2023-09-17] MEDS: INSULIN REGULAR, HUMAN 100 UNIT/ML 3 ML VIAL SQ PRN ×4 (07:22→21:21)
[2023-09-17 07:30] LABS: ALBUMIN 2.5 g/dL (3.4-5.0); BILIRUBIN,TOTAL 0.2 mg/dL (0.2-1.0); CALCIUM, SERUM 8.4 mg/dL (8.5-10.1); CREATININE 0.8 mg/dL (0.6-1.3); POTASSIUM 3.7 mmol/L (3.5-5.1); TOTAL PROTEIN, SERUM 6.2 g/dL (6.4-8.2)
[2023-09-17] MEDS: methylPREDNISolone SOD SUCC 40 MG/ML VIAL IV SCH (09:00)
[2023-09-17] MEDS: MAGNESIUM OXIDE 400 MG TABLET PO SCH (09:32)
[2023-09-17] MEDS: ESCITALOPRAM OXALATE (10 MG) 10 MG TABLET PO SCH (09:32)
[2023-09-17] MEDS: busPIRone 5 MG TABLET PO SCH ×2 (09:32→16:29)
[2023-09-17] MEDS: PANTOPRAZOLE 40 MG TABLET.DR PO SCH ×2 (09:32→16:29)
[2023-09-17] MEDS: ASCORBIC ACID 500 MG TABLET PO SCH (09:32)
[2023-09-17] MEDS: APIXABAN 5 MG TABLET PO SCH ×2 (09:33→20:43)
[2023-09-17] MEDS: AMLODIPINE BESYLATE 5 MG TABLET PO SCH (09:33)
[2023-09-17] MEDS: MULTIVIT W/MINERALS 1 TAB TABLET PO SCH (09:35)
[2023-09-17] MEDS: ACETAMINOPHEN 325 MG TABLET PO PRN (09:44)
[2023-09-17] MEDS: POTASSIUM CHLORIDE 20 MEQ TAB.PRT.SR PO SCH (11:32)
[2023-09-17 20:00] VITALS: BP 133/68; TEMP 98; O2SAT 95
[2023-09-17] MEDS: ATORVASTATIN 40 MG TABLET PO SCH (21:02)
[2023-09-18] MEDS: INSULIN REGULAR, HUMAN 100 UNIT/ML 3 ML VIAL SQ PRN ×3 (06:51→17:35)
[2023-09-18 07:00] VITALS: BP 127/74; TEMP 98.6; O2SAT 97
[2023-09-18] MEDS: BLOOD SUGAR DIAGNOSTIC 1 EACH STRIP VI SCH ×4 (07:13→21:20)
[2023-09-18 07:26] LABS: BASOPHILS % (AUTO) 0.5 % (0.0-2.0); EOSINOPHILS # (AUTO) 0.1 K/uL (0.0-0.7); EOSINOPHILS % (AUTO) 1.3 % (0.0-6.0); HEMATOCRIT 35 % (33-45); HEMOGLOBIN 11.7 g/dL (11.5-14.8); LYMPHOCYTES # (AUTO) 3.7 K/uL (0.8-4.8); LYMPHOCYTES % (AUTO) 39.9 % (20.0-44.0); MEAN CORPUSCULAR HEMOGLOBIN 31 PG (26.0-33.0); MEAN CORPUSCULAR HGB CONC 33 g/dl (31.0-36.0); MEAN CORPUSCULAR VOLUME 93 fL (82-100); MONOCYTES # (AUTO) 0.8 K/uL (0.1-1.30); MONOCYTES % (AUTO) 8.1 % (2.0-12.0); NEUTROPHILS # (AUTO) 4.7 K/uL (1.8-8.9); NEUTROPHILS % (AUTO) 50.2 % (43.0-81.0); PLATELET COUNT (AUTO) 336 K/uL (150-450); RED CELL DISTRIBUTION WIDTH 16.1 % (11.5-15.0); WHITE BLOOD COUNT (AUTO) 9.3 K/uL (4.3-11.0)
[2023-09-18 08:11] LABS: ALBUMIN 2.4 g/dL (3.4-5.0); BILIRUBIN,TOTAL 0.3 mg/dL (0.2-1.0); CALCIUM, SERUM 8.6 mg/dL (8.5-10.1); CREATININE 0.6 mg/dL (0.6-1.3); POTASSIUM 3.5 mmol/L (3.5-5.1); TOTAL PROTEIN, SERUM 5.9 g/dL (6.4-8.2)
[2023-09-18] MEDS: PANTOPRAZOLE 40 MG TABLET.DR PO SCH ×2 (09:33→17:41)
[2023-09-18] MEDS: AMLODIPINE BESYLATE 5 MG TABLET PO SCH (09:34)
[2023-09-18] MEDS: APIXABAN 5 MG TABLET PO SCH ×2 (09:34→21:11)
[2023-09-18] MEDS: ESCITALOPRAM OXALATE (10 MG) 10 MG TABLET PO SCH (09:37)
[2023-09-18] MEDS: busPIRone 5 MG TABLET PO SCH ×2 (09:37→17:41)
[2023-09-18] MEDS: POTASSIUM CHLORIDE 20 MEQ TAB.PRT.SR PO SCH (09:37)
[2023-09-18] MEDS: ASCORBIC ACID 500 MG TABLET PO SCH (09:37)
[2023-09-18] MEDS: MAGNESIUM OXIDE 400 MG TABLET PO SCH (09:38)
[2023-09-18] MEDS: MULTIVIT W/MINERALS 1 TAB TABLET PO SCH (09:41)
[2023-09-18] MEDS: POTASSIUM CHLORIDE 20 MEQ POWDER PACKET PO SCH (10:08)
[2023-09-18] MEDS: ACETAMINOPHEN 325 MG TABLET PO PRN ×2 (10:09→21:29)
[2023-09-18 16:00] VITALS: BP 105/63; TEMP 98.4; O2SAT 96
[2023-09-18 20:00] VITALS: BP 128/75; TEMP 98.3; O2SAT 95
[2023-09-18] MEDS: ATORVASTATIN 40 MG TABLET PO SCH (21:11)
[2023-09-18] MEDS: *INSULIN REGULAR(HUMULIN R)HUM 100 UNIT/ML VIAL SQ PRN (21:24)
[2023-09-19] MEDS: INSULIN REGULAR, HUMAN 100 UNIT/ML 3 ML VIAL SQ PRN ×2 (06:31→12:01)
[2023-09-19] MEDS: BLOOD SUGAR DIAGNOSTIC 1 EACH STRIP VI SCH ×2 (07:00→12:14)
[2023-09-19 08:00] VITALS: BP 114/76; TEMP 98.2; O2SAT 96
[2023-09-19 08:59] VITALS: BP 114/76
[2023-09-19] MEDS: POTASSIUM CHLORIDE 20 MEQ POWDER PACKET PO SCH (08:59)
[2023-09-19] MEDS: AMLODIPINE BESYLATE 5 MG TABLET PO SCH (08:59)
[2023-09-19] MEDS: ASCORBIC ACID 500 MG TABLET PO SCH (08:59)
[2023-09-19] MEDS: busPIRone 5 MG TABLET PO SCH (09:00)
[2023-09-19] MEDS: PANTOPRAZOLE 40 MG TABLET.DR PO SCH (09:00)
[2023-09-19] MEDS: MAGNESIUM OXIDE 400 MG TABLET PO SCH (09:00)
[2023-09-19] MEDS: ESCITALOPRAM OXALATE (10 MG) 10 MG TABLET PO SCH (09:00)
[2023-09-19] MEDS: APIXABAN 5 MG TABLET PO SCH (09:02)
[2023-09-19] MEDS: MULTIVIT W/MINERALS 1 TAB TABLET PO SCH (09:06)
== END 2023-09-19 12:10 | DRG 640 ==
LOC: ER 21:13 → TELE 09-13 00:54 → MED 09-16 12:04
PROVIDERS: ADMIT Nurse Practitioner Acute Care; ATTEND Internal Medicine
DX: E87.6 Hypokalemia (principal); E43 Unspecified severe protein-calorie malnutrition; D68.59 Other primary thrombophilia; E24.9 Cushing's syndrome, unspecified; Z68.43 Body mass index [BMI] 50.0-59.9, adult; K52.832 Lymphocytic colitis; E83.42 Hypomagnesemia; I11.9 Hypertensive heart disease without heart failure; Z86.711 Personal history of pulmonary embolism; Z86.718 Personal history of other venous thrombosis and embolism; Z90.49 Acquired absence of other specified parts of digestive tract; Z90.710 Acquired absence of both cervix and uterus; Z87.442 Personal history of urinary calculi; Z88.1 Allergy status to other antibiotic agents; Z88.2 Allergy status to sulfonamides; Z90.721 Acquired absence of ovaries, unilateral; Z88.5 Allergy status to narcotic agent; Z79.4 Long term (current) use of insulin; Z79.01 Long term (current) use of anticoagulants; Z79.84 Long term (current) use of oral hypoglycemic drugs; M19.90 Unspecified osteoarthritis, unspecified site; E11.9 Type 2 diabetes mellitus without complications; E66.01 Morbid (severe) obesity due to excess calories; E78.5 Hyperlipidemia, unspecified; R19.09 Other intra-abdominal and pelvic swelling, mass and lump; T38.0X5A Adverse effect of glucocorticoids and synthetic analogues, initial encounter; Y92.9 Unspecified place or not applicable
CPT/HCPCS: 36415; 80048-TC; 80053-TC; 81001; 82962-TC; 83690-TC; 83735-TC; 84100-TC; 85025-TC; 87081-TC; 87086-TC; 94660; 94799-TC; A4223; G0378; J1815; J2405; J2920; J3475; J3480; J3490; J7030; J7050

== ENCOUNTER 2023-11-25 13:45 | Inpatient (IN) | payer MEDICARE, BC ==
[~2023-11-25] VITALS: Ht 180.3 cm; Wt 163.3 kg
[~2023-11-25 13:45] MED LIST changes: -CEFD300C3 PO; -GUAI5SYR PO; +LINA5TAB PO; +LOPE-195 PO; -PHEN-894 PO; -POTA-88 PO; +POTA20TA10 PO; -PRED20TA PO
[2023-11-25 14:31] LABS: BASOPHILS # (AUTO) 0.1 K/uL (0.0-0.2); EOSINOPHILS # (AUTO) 0.8 K/uL (0.0-0.7); EOSINOPHILS % (AUTO) 9.2 % (0.0-6.0); HEMATOCRIT 37 % (33-45); HEMOGLOBIN 12.1 g/dL (11.5-14.8); LYMPHOCYTES # (AUTO) 1.7 K/uL (0.8-4.8); MEAN CORPUSCULAR HEMOGLOBIN 30 PG (26.0-33.0); MEAN CORPUSCULAR HGB CONC 33 g/dl (31.0-36.0); MEAN CORPUSCULAR VOLUME 92 fL (82-100); MONOCYTES # (AUTO) 0.5 K/uL (0.1-1.30); MONOCYTES % (AUTO) 5.9 % (2.0-12.0); NEUTROPHILS # (AUTO) 5.9 K/uL (1.8-8.9); NEUTROPHILS % (AUTO) 64.9 % (43.0-81.0); PLATELET COUNT (AUTO) 290 K/uL (150-450); RED BLOOD CELL COUNT(AUTO) 4.03 MIL/uL (4.0-5.2); RED CELL DISTRIBUTION WIDTH 15.4 % (11.5-15.0); WHITE BLOOD COUNT (AUTO) 9.1 K/uL (4.3-11.0)
[2023-11-25 15:10] LABS: ALANINE AMINOTRANSFERASE 20 U/L (12-78); ALBUMIN 3.2 g/dL (3.4-5.0); ALKALINE PHOSPHATASE 113 U/L (46-116); ASPARTATE AMINOTRANSFERASE 14 U/L (15-37); BILIRUBIN,DIRECT 0.1 mg/dL (0.0-0.2); BILIRUBIN,TOTAL 0.4 mg/dL (0.2-1.0); CALCIUM, SERUM 10.2 mg/dL (8.5-10.1); CARBON DIOXIDE 18 mmol/L (21-32); CHLORIDE 108 mmol/L (98-107); CREATININE 0.8 mg/dL (0.6-1.3); GLUCOSE 134 mg/dL (74-106); LIPASE 17 U/L (16-77); SODIUM SERUM 143 mmol/L (136-145); TOTAL PROTEIN, SERUM 7.2 g/dL (6.4-8.2); UREA NITROGEN, BLOOD 10 mg/dL (7-18)
[2023-11-25 15:20] LABS: POTASSIUM 2.8 mmol/L (3.5-5.1)
[2023-11-25 15:48] LABS: APPEARANCE,URINE SLIGHTLY CLOUDY (CLEAR); BILIRUBIN,URINE NEGATIVE (NEGATIVE); BLOOD, URINE 1+ Ery/uL (NEGATIVE); COLOR,URINE YELLOW (YELLOW); KETONES,URINE NEGATIVE (NEGATIVE); LEUKOCYTE ESTERASE ,URINE 3+ (NEGATIVE); NITRITE, URINE POSITIVE (NEGATIVE); PROTEIN,URINE 1+ mg/dl (NEGATIVE); UGLUCOSE NEGATIVE (NEGATIVE); UROBILINOGEN,URINE 0.2 EU/dL (0.2)
[2023-11-25] MEDS ORDERED: POTASSIUM CHLORIDE 20 MEQ TAB.PRT.SR PO ONE (15:53)
[2023-11-25] MEDS: POTASSIUM CHLORIDE 20 MEQ TAB.PRT.SR PO ONE (15:54)
[2023-11-25 16:01] LABS: ADD URINE CULTURE YES; BACTERIA,URINE 4+ /HPF (None Seen); WBC,URINE 51-80 /HPF (0-3)
[2023-11-25] MEDS ORDERED: OLME1TAB22 PO (16:15)
[2023-11-25] MEDS ORDERED: INSU100I26 SQ (16:15)
[2023-11-25] MEDS ORDERED: POTA20PA3 PO (16:15)
[2023-11-25] MEDS ORDERED: DIPH60LI2 PO (16:15)
[2023-11-25] MEDS ORDERED: ONDA-97 SL (16:15)
[2023-11-25] MEDS ORDERED: SIME125T3 PO (16:15)
[2023-11-25] MEDS ORDERED: ACET-1951 PO (16:15)
[2023-11-25] MEDS ORDERED: RIVA10TA PO (16:15)
[2023-11-25] MEDS ORDERED: GABA-532 PO (16:15)
[2023-11-25] MEDS ORDERED: POTASSIUM CL. PREMIX PERIPHER. 50 ML ONE (16:28)
[2023-11-25] MEDS: POTASSIUM CL. PREMIX PERIPHER. 50 ML IV SCH (16:28)
[2023-11-25] MEDS ORDERED: POTASSIUM CL. PREMIX PERIPHER. 150 ML ONE (16:29)
[2023-11-25] MEDS ORDERED: hydrALAZINE HCL IV 20 MG VIAL IV PRN (18:30)
[2023-11-25] MEDS ORDERED: DEXTROSE 50%-WATER 50 ML DISP.SYRIN IV PRN (18:30)
[2023-11-25] MEDS ORDERED: ONDANSETRON HCL/PF 4 MG/2 ML VIAL IVP PRN (18:30)
[2023-11-25 19:09] LABS: BILIRUBIN,TOTAL 0.3 mg/dL (0.2-1.0); CALCIUM, SERUM 9.8 mg/dL (8.5-10.1); CREATININE 0.7 mg/dL (0.6-1.3); POTASSIUM 3.1 mmol/L (3.5-5.1); TOTAL PROTEIN, SERUM 6.5 g/dL (6.4-8.2)
[2023-11-25 19:11] LABS: LACTIC ACID 0.8 mmol/L (0.4-2.0)
[2023-11-25 20:00] VITALS: BP 110/98; TEMP 98.2; O2SAT 100
[2023-11-25] MEDS: NITROFURANTOIN/MONOHYDRATE MACROCRYSTALS 100 MG CAPSULE PO SCH (20:07)
[2023-11-25] MEDS ORDERED: HEPARIN SODIUM, PORCINE 5000 UNITS/1 ML VIAL SQ SCH (21:00)
[2023-11-25] MEDS: ATORVASTATIN 40 MG TABLET PO SCH (21:35)
[2023-11-25] MEDS: BLOOD SUGAR DIAGNOSTIC 1 EACH STRIP IN SCH (21:46)
[2023-11-25] MEDS: INSULIN REGULAR, HUMAN 100 UNIT/ML 3 ML VIAL SQ PRN (21:47)
[2023-11-25] MEDS: diphenhydrAMINE HCL 25 MG CAPSULE PO ONE (22:20)
[2023-11-25] MEDS: ACETAMINOPHEN 325 MG TABLET PO PRN (22:20)
[2023-11-25] MEDS: IV NS 0.9% 1,000 ML IV PRN (22:47)
[2023-11-26] VITALS: BP 110/98; TEMP 98; O2SAT 100
[2023-11-26 04:00] VITALS: BP 127/64; TEMP 98; O2SAT 99
[2023-11-26 07:13] LABS: BASOPHILS % (AUTO) 0.4 % (0.0-2.0); EOSINOPHILS # (AUTO) 0.7 K/uL (0.0-0.7); EOSINOPHILS % (AUTO) 9.7 % (0.0-6.0); HEMATOCRIT 33 % (33-45); HEMOGLOBIN 11.1 g/dL (11.5-14.8); LYMPHOCYTES # (AUTO) 2.2 K/uL (0.8-4.8); LYMPHOCYTES % (AUTO) 28.1 % (20.0-44.0); MEAN CORPUSCULAR HEMOGLOBIN 31 PG (26.0-33.0); MEAN CORPUSCULAR HGB CONC 33 g/dl (31.0-36.0); MEAN CORPUSCULAR VOLUME 92 fL (82-100); MONOCYTES # (AUTO) 0.7 K/uL (0.1-1.30); MONOCYTES % (AUTO) 9.4 % (2.0-12.0); NEUTROPHILS % (AUTO) 52.4 % (43.0-81.0); PLATELET COUNT (AUTO) 261 K/uL (150-450); RED BLOOD CELL COUNT(AUTO) 3.65 MIL/uL (4.0-5.2); RED CELL DISTRIBUTION WIDTH 15.2 % (11.5-15.0); WHITE BLOOD COUNT (AUTO) 7.7 K/uL (4.3-11.0)
[2023-11-26 08:00] VITALS: BP 123/60; TEMP 97.5; O2SAT 99
[2023-11-26 08:00] LABS: ALBUMIN 2.7 g/dL (3.4-5.0); BILIRUBIN,TOTAL 0.2 mg/dL (0.2-1.0); CALCIUM, SERUM 9.6 mg/dL (8.5-10.1); CREATININE 0.7 mg/dL (0.6-1.3); MAGNESIUM 1.3 mg/dL (1.8-2.4); PHOSPHORUS 3.5 mg/dL (2.5-4.9); POTASSIUM 2.9 mmol/L (3.5-5.1); TOTAL PROTEIN, SERUM 6.1 g/dL (6.4-8.2)
[2023-11-26] MEDS: AMLODIPINE BESYLATE 5 MG TABLET PO SCH (08:45)
[2023-11-26] MEDS: PANTOPRAZOLE 40 MG TABLET.DR PO SCH (08:45)
[2023-11-26] MEDS: busPIRone 5 MG TABLET PO SCH (08:46)
[2023-11-26] MEDS: ESCITALOPRAM OXALATE (10 MG) 10 MG TABLET PO SCH (08:46)
[2023-11-26] MEDS: RIVAROXABAN 10 MG TABLET PO SCH (08:47)
[2023-11-26] MEDS: POTASSIUM CL. PREMIX PERIPHER. 50 ML IV PRN (08:55)
[2023-11-26] MEDS ORDERED: FAMOTIDINE/PF INJ 20 MG/2 ML VIAL IV PRN (09:00)
[2023-11-26] MEDS: diphenhydrAMINE HCL 50 MG/ML VIAL IV PRN (09:55)
[2023-11-26] MEDS: Magnesium 1GM/D5W 100ML PREMIX 100 ML IV SCH ×2 (09:58→14:30)
[2023-11-26 12:00] VITALS: BP 118/52; TEMP 97.8; O2SAT 96
[2023-11-26] MEDS: GENTAMICIN 480 MG in IV D5W 100 ML IV SCH (15:36)
[2023-11-26 16:00] VITALS: BP 107/45; TEMP 98.2; O2SAT 95
[2023-11-26] MEDS: DIPHENOXYLATE HCL/ATROP SULF 1 UDTAB TABLET PO PRN (16:39)
[2023-11-26 20:00] VITALS: BP 114/61; TEMP 98.6; O2SAT 98
[2023-11-26 20:18] LABS: BILIRUBIN,TOTAL 0.3 mg/dL (0.2-1.0); CALCIUM, SERUM 9.5 mg/dL (8.5-10.1); CREATININE 0.9 mg/dL (0.6-1.3); POTASSIUM 2.9 mmol/L (3.5-5.1); TOTAL PROTEIN, SERUM 6.7 g/dL (6.4-8.2)
[2023-11-27] VITALS: BP 109/67; TEMP 97.9; O2SAT 96
[2023-11-27] MEDS: ZOLPIDEM TARTRATE 5 MG TABLET PO ONE (00:10)
[2023-11-27 04:00] VITALS: BP 117/56; TEMP 98.2; O2SAT 97
[2023-11-27 08:00] VITALS: BP 115/60; TEMP 98.7; O2SAT 96
[2023-11-27] MEDS ORDERED: hydrOXYzine 10 MG TABLET PO SCH (10:00)
[2023-11-27] MEDS: PANTOPRAZOLE 40 MG TABLET.DR PO SCH (11:22)
[2023-11-27] MEDS: diphenhydrAMINE HCL 50 MG/ML VIAL IV PRN (11:22)
[2023-11-27 12:00] VITALS: BP 115/60; TEMP 98.7; O2SAT 96
[2023-11-27] MEDS: hydrOXYzine 10 MG TABLET PO SCH (12:00)
[2023-11-27 16:00] VITALS: BP 120/64; TEMP 98.8
[2023-11-27] MEDS: GENTAMICIN 400 MG in IV D5W 100 ML IV SCH (16:00)
[2023-11-27] MEDS: GABAPENTIN 100 MG CAPSULE PO PRN (18:46)
[2023-11-27 19:21] LABS: CALCIUM, SERUM 9.3 mg/dL (8.5-10.1); CREATININE 0.8 mg/dL (0.6-1.3); POTASSIUM 3.1 mmol/L (3.5-5.1)
[2023-11-27 19:27] LABS: BILIRUBIN,TOTAL 0.3 mg/dL (0.2-1.0); TOTAL PROTEIN, SERUM 6.6 g/dL (6.4-8.2)
[2023-11-27 20:00] VITALS: BP 132/101; TEMP 98; O2SAT 96
[2023-11-28 04:00] VITALS: BP 130/100; TEMP 98; O2SAT 96
[2023-11-28 07:00] LABS: CALCIUM, SERUM 9.1 mg/dL (8.5-10.1); CREATININE 0.8 mg/dL (0.6-1.3); POTASSIUM 3.4 mmol/L (3.5-5.1)
[2023-11-28 07:05] LABS: GENTAMICIN,TROUGH 0.3 ug/ml (0.2-2.0); POTASSIUM 3.4 mmol/L (3.5-5.1)
[2023-11-28 07:06] LABS: ALBUMIN 2.7 g/dL (3.4-5.0); BILIRUBIN,TOTAL 0.2 mg/dL (0.2-1.0); TOTAL PROTEIN, SERUM 6.1 g/dL (6.4-8.2)
[2023-11-28 08:00] VITALS: BP 129/70; TEMP 97.7; O2SAT 96
[2023-11-28 16:00] VITALS: BP 146/70; TEMP 98.1; O2SAT 96
[2023-11-28 18:37] LABS: ALBUMIN 2.8 g/dL (3.4-5.0); BILIRUBIN,TOTAL 0.2 mg/dL (0.2-1.0); CALCIUM, SERUM 9.1 mg/dL (8.5-10.1); CREATININE 0.7 mg/dL (0.6-1.3); TOTAL PROTEIN, SERUM 6.3 g/dL (6.4-8.2)
[2023-11-28 20:00] VITALS: BP 110/51; TEMP 98.8; O2SAT 98
[2023-11-29 04:00] VITALS: BP 118/53; TEMP 98.5; O2SAT 97
[2023-11-29 07:55] LABS: CREATININE 0.8 mg/dL (0.6-1.3); MAGNESIUM 1.8 mg/dL (1.8-2.4); POTASSIUM 3.5 mmol/L (3.5-5.1)
[2023-11-29 08:00] VITALS: BP 116/53; TEMP 98.4; O2SAT 95
[2023-11-29] MEDS: POTASSIUM CHLORIDE 20 MEQ TAB.PRT.SR PO ONE (09:56)
[2023-11-29 16:00] VITALS: BP 118/52; O2SAT 96
[2023-11-29 20:00] VITALS: BP 131/61; TEMP 97.9; O2SAT 98
[2023-11-30 00:07] LABS: ABG BASE EXCESS -7.7 mmol/L; ABG OXYGEN SATURATION 95.5 % (92.0-98.5); ABG PCO2 28.5 mmHg (35.0-45.0); ABG PH 7.375 (7.350-7.450); ABG PO2 79.2 mmHg (75.0-100.0); ABG TOTAL HEMOGLOBIN 11.3 G/dL (12.0-16.0); AaDO2 36.4 mmHg; COHb 0.3 % (0.5-1.5); MetHb 0.3 % (0.0-1.5); O2Hb 94.9 % (94.0-97.0); SITE, ABG Right Radial; VENT MODE, BG ROOM AIR
[2023-11-30 04:00] VITALS: BP 123/65; TEMP 98.1; O2SAT 97
[2023-11-30 08:00] VITALS: BP 118/54; TEMP 97.5; O2SAT 99
[2023-11-30] MEDS ORDERED: CIPR500T5 PO (08:53)
[2023-11-30] MEDS: Magnesium 1GM/D5W 100ML PREMIX 100 ML IV SCH (09:07)
[2023-11-30] MEDS: POTASSIUM CHLORIDE 20 MEQ TAB.PRT.SR PO ONE (09:10)
[2023-11-30] MEDS ORDERED: FAMOTIDINE (20 MG) 20 MG TABLET PO PRN (12:00)
[2023-11-30 16:00] VITALS: BP 138/64; TEMP 98.4; O2SAT 94
== END 2023-11-30 18:45 | disposition home health service (06) | DRG 641 ==
LOC: ER 13:45 → TELE-TD 18:28 → TELE1 19:46 → MEDSG1 11-27 11:10
PROVIDERS: ADMIT Internal Medicine; ATTEND Internal Medicine
PROC: 05HF33Z Insertion of Infusion Device into Left Cephalic Vein, Percutaneous Approach (ICD-10-PCS; 2023-11-25)
PROC: 5A09357 Assistance with Respiratory Ventilation, Less than 24 Consecutive Hours, Continuous Positive Airway Pressure (ICD-10-PCS; principal; 2023-11-26)
PROC: 5A09357 Assistance with Respiratory Ventilation, Less than 24 Consecutive Hours, Continuous Positive Airway Pressure (ICD-10-PCS; 2023-11-28)
PROC: 05HF33Z Insertion of Infusion Device into Left Cephalic Vein, Percutaneous Approach (ICD-10-PCS; 2023-11-28)
PROC: 05HD33Z Insertion of Infusion Device into Right Cephalic Vein, Percutaneous Approach (ICD-10-PCS; 2023-11-29)
DX: E87.6 Hypokalemia (principal); N39.0 Urinary tract infection, site not specified; J96.10 Chronic respiratory failure, unspecified whether with hypoxia or hypercapnia; E24.9 Cushing's syndrome, unspecified; Z68.43 Body mass index [BMI] 50.0-59.9, adult; I11.0 Hypertensive heart disease with heart failure; I50.9 Heart failure, unspecified; F41.9 Anxiety disorder, unspecified; G47.33 Obstructive sleep apnea (adult) (pediatric); E83.42 Hypomagnesemia; E11.40 Type 2 diabetes mellitus with diabetic neuropathy, unspecified; Z86.711 Personal history of pulmonary embolism; Z79.01 Long term (current) use of anticoagulants; E78.5 Hyperlipidemia, unspecified; Z90.710 Acquired absence of both cervix and uterus; Z90.49 Acquired absence of other specified parts of digestive tract; K21.9 Gastro-esophageal reflux disease without esophagitis; Z87.442 Personal history of urinary calculi; Z86.718 Personal history of other venous thrombosis and embolism; Z79.4 Long term (current) use of insulin; Z79.899 Other long term (current) drug therapy; Z88.1 Allergy status to other antibiotic agents; Z88.2 Allergy status to sulfonamides; Z88.5 Allergy status to narcotic agent; E87.20 Acidosis, unspecified; F31.9 Bipolar disorder, unspecified; I48.91 Unspecified atrial fibrillation; E66.01 Morbid (severe) obesity due to excess calories; Z86.018 Personal history of other benign neoplasm; F12.90 Cannabis use, unspecified, uncomplicated; T47.1X5A Adverse effect of other antacids and anti-gastric-secretion drugs, initial encounter; Y92.9 Unspecified place or not applicable; B96.4 Proteus (mirabilis) (morganii) as the cause of diseases classified elsewhere; L27.0 Generalized skin eruption due to drugs and medicaments taken internally; T36.8X5A Adverse effect of other systemic antibiotics, initial encounter; Y92.230 Patient room in hospital as the place of occurrence of the external cause
CPT/HCPCS: 36410; 36415; 36600; 71045-TC; 80048-TC; 80053-TC; 80076-TC; 80170-TC; 81001; 82803-TC; 82962-TC; 83605-TC; 83690-TC; 83735-TC; 84100-TC; 84132-TC; 84484-TC; 85025-TC; 87086-TC; 94660; 94799-TC; A4223; G0378; J1200; J1580; J1815; J3475; J3480; J7030; J7040; J7060; Q0163; Q0177